=== PATIENT | male | born 1980 | race Two or more races ===

== ENCOUNTER 2023-02-27 12:46 | Emergency (ER) | payer OTHER ==
[2023-02-27 13:43] VITALS: PULSE 102; RESP 20; TEMP 98.1; BMI 25.7
[2023-02-27] MEDS ORDERED: KETOROLAC TROMETHAMINE 30 MG/1 ML VIAL IM ONE (13:52)
[2023-02-27] MEDS ORDERED: DEXAMETHASONE SOD PHOSPHATE 10 MG/1 ML VIAL IM ONE (13:54)
[2023-02-27] MEDS ORDERED: KETOROLAC TROMETHAMINE 30 MG/1 ML VIAL ONE (14:20)
[2023-02-27] MEDS ORDERED: DEXAMETHASONE SOD PHOSPHATE 10 MG/1 ML VIAL ONE (14:20)
[2023-02-27 16:58] VITALS: BP 141/98
== END 2023-02-27 17:10 | disposition home or self-care (01) ==
LOC: JER 12:46
PROC: 3E0233Z Introduction of Anti-inflammatory into Muscle, Percutaneous Approach (ICD-10-PCS; principal; 2023-02-27)
PROC: 3E023GC Introduction of Other Therapeutic Substance into Muscle, Percutaneous Approach (ICD-10-PCS; 2023-02-27)
DX: M79.602 Pain in left arm (principal); R20.0 Anesthesia of skin; R53.1 Weakness; M54.2 Cervicalgia; R20.2 Paresthesia of skin; R29.898 Other symptoms and signs involving the musculoskeletal system
CPT/HCPCS: 72125-TC; 99284-25; J1100

== ENCOUNTER 2025-01-22 15:58 | Inpatient (IN) | payer OTHER ==
[2025-01-22 17:11] VITALS: BMI 25.4
[2025-01-22] MEDS ORDERED: MAG HYDROX/AL HYDROX/SIMETH 30 ML UNIT-DOSE CUP PO PRN (19:04)
[2025-01-22] MEDS ORDERED: BENZOCAINE/MENTHOL (CHLORASEPTIC ) LOZENGE MM PRN (19:04)
[2025-01-22] MEDS ORDERED: LOPERAMIDE HCL 2 MG CAPSULE PO PRN (19:04)
[2025-01-22] MEDS ORDERED: BISMUTH SUBSALICYLATE 524 MG/30 ML PO PRN (19:04)
[2025-01-22] MEDS ORDERED: DICYCLOMINE HCL 10 MG CAPSULE PO PRN (19:04)
[2025-01-22] MEDS ORDERED: BENZONATATE 200 MG CAPSULE PO PRN (19:04)
[2025-01-22] MEDS ORDERED: guaiFENesin 600 MG TABLET.ER (FP) PO PRN (19:04)
[2025-01-22] MEDS ORDERED: MAGNESIUM HYDROX 2400MG/30ML ORAL SUSPENSION 30 ML CUP PO PRN (19:04)
[2025-01-22] MEDS ORDERED: POLYETHYLENE GLYCOL (HEALTHYLAX) 3350 17 GM PACKET PO PRN (19:04)
[2025-01-22] MEDS ORDERED: IBUPROFEN 400 MG TABLET (FP) PO PRN (19:04)
[2025-01-22] MEDS ORDERED: IBUPROFEN 600 MG TABLET (FP) PO PRN (19:04)
[2025-01-22] MEDS ORDERED: NALOXONE (NARCAN) HCL 4 MG/0.1 ML SPRAY NS PRN (19:04)
[2025-01-22] MEDS ORDERED: ONDANSETRON *ODT* 4 MG TABLET SL PRN (19:04)
[2025-01-22] MEDS ORDERED: hydrOXYzine PAMOATE 25 MG CAPSULE (FP) PO ONE (19:33)
[2025-01-22] MEDS ORDERED: chlordiazePOXIDE HCL 25 MG CAPSULE ONE (19:33)
[2025-01-22] MEDS: chlordiazePOXIDE HCL 25 MG CAPSULE PO PRN (19:36)
[2025-01-22] MEDS: hydrOXYzine PAMOATE 25 MG CAPSULE (FP) PO PRN (19:37)
[2025-01-22] MEDS: MELATONIN 5 MG TABLETS PO SCH (22:17)
[2025-01-22] MEDS: THIAMINE 100 MG TABLET PO SCH (22:18)
[2025-01-22] MEDS: METHOCARBAMOL 500 MG TABLET PO PRN (22:18)
[2025-01-22] MEDS: chlordiazePOXIDE HCL 25 MG CAPSULE PO SCH (22:18)
[2025-01-23] MEDS: PRENATAL VITAMINS W/ FOLIC ACID TABLET (FP) PO SCH (10:38)
[2025-01-23 13:23] LABS: HEMATOCRIT 45.9 % (40.1-51.0); HEMOGLOBIN 15.3 g/dL (13.7-17.5); MCHC 33.3 g/dl (32.3-36.5); MEAN CELL VOLUME 91.8 fl (79.0-92.2); PLATELET COUNT 267 x10^3/uL (163-337); RDW 12.2 % (12.1-15.9)
[2025-01-23 13:49] LABS: CHLORIDE 103 mmol/L (98-107); POTASSIUM 4.5 mmol/L (3.5-5.1); SODIUM 139 mmol/L (136-145)
[2025-01-23 14:02] LABS: ALBUMIN 3.5 g/dl (3.4-5.0); ANION GAP 6 mmol/L (4-13); BLOOD UREA NITROGEN 14.8 mg/dL (7-18); CALCIUM 9.1 mg/dL (8.5-10.1); CO2 30 mmol/L (21-32); GLUCOSE,RANDOM 86 mg/dL (74-106)
[2025-01-23 14:05] LABS: SGOT/AST 17 U/L (15-37)
[2025-01-23 14:07] LABS: BILIRUBIN,TOTAL 1.2 mg/dL (0.2-1); TOT PROT 6.5 g/dl (6.4-8.2)
[2025-01-23 14:08] LABS: ALK PHOS 65 U/L (45-117)
[2025-01-23 14:15] LABS: CREATININE 0.9 mg/dL (0.55-1.3); SGPT/ALT 25 U/L (13-61)
[2025-01-24] MEDS: chlordiazePOXIDE HCL 25 MG CAPSULE PO SCH (05:39)
[2025-01-24] MEDS: amLODIPine BESYLATE 5 MG TABLET (FP) PO SCH (13:48)
[2025-01-25] MEDS ORDERED: chlordiazePOXIDE HCL 10 MG CAPSULE PO PRN
[2025-01-25] MEDS: chlordiazePOXIDE HCL 10 MG CAPSULE PO SCH (05:54)
[2025-01-25] MEDS: ACETAMINOPHEN 325 MG TABLET (FP) PO PRN (15:56)
[2025-01-26] MEDS: chlordiazePOXIDE HCL 10 MG CAPSULE PO SCH (05:48)
[2025-01-26] MEDS: NALTREXONE HCL 50 MG TABLET PO ONE (14:35)
[2025-01-27] MEDS: chlordiazePOXIDE HCL 10 MG CAPSULE PO ONE (06:00)
[2025-01-27 08:47] VITALS: BP 152/88; PULSE 93; RESP 18; TEMP 97.9
[2025-01-27] MEDS: NALTREXONE HCL 50 MG TABLET PO SCH (10:36)
== END 2025-01-27 09:42 | disposition home or self-care (01) | DRG 774 ==
LOC: YASAS 15:58 → Y6N 19:25
PROVIDERS: ADMIT Allergy & Immunology; ATTEND Allergy & Immunology
PROC: HZ2ZZZZ Detoxification Services for Substance Abuse Treatment (ICD-10-PCS; principal; 2025-01-22)
DX: F10.230 Alcohol dependence with withdrawal, uncomplicated (principal); F14.20 Cocaine dependence, uncomplicated; F41.8 Other specified anxiety disorders; F32.A Depression, unspecified; I10 Essential (primary) hypertension; L80 Vitiligo; Z59.00 Homelessness unspecified
CPT/HCPCS: 36415; 80053; 80305; 80307; 85027; 86780; 93005; 93010